=== PATIENT | male | born 1990 | race Caucasian/White ===

== ENCOUNTER 2019-08-30 19:36 | Emergency (ER) | payer OTHER, BC ==
[~2019-08-30] VITALS: Ht 172.7 cm; Wt 100.0 kg
[2019-08-30] MEDS ORDERED: pantoprazole 40 MG vial IV ONE (20:00)
[2019-08-30] MEDS ORDERED: morphine 4 MG/ML inj SYRINge IV ONE (20:25)
[2019-08-30 20:32] LABS: PARTIAL THROMBOPLASTIN TIME 25 SECONDS (22-32)
[2019-08-30 20:33] LABS: ALANINE AMINOTRANSFERASE 41 U/L (12-78); ALBUMIN 4.3 G/DL (3.4-5.0); ALKALINE PHOSPHATASE 80 IU/L (46-116); ANION GAP 9 (8-16); ASPARTATE AMINO TRANSFERASE 26 U/L (10-37); BILIRUBIN,TOTAL 0.5 MG/DL (0.1-1.0); BLOOD UREA NITROGEN 13 MG/DL (7-18); BUN/CREATININE RATIO 10.5 (5.4-32.0); CALCIUM 9.1 MG/DL (8.5-10.1); CHLORIDE 103 MMOL/L (99-107); CREATININE 1.24 MG/DL (0.60-1.10); GLUCOSE 89 MG/DL (70-104); LIPASE 94 U/L (73-393); POTASSIUM 3.7 MMOL/L (3.5-5.1); SODIUM 140 MMOL/L (135-145); TOTAL CARBON DIOXIDE 27.9 MMOL/L (24-32); TOTAL PROTEIN 8.7 G/DL (6.4-8.2); eGFR 68 ML/MIN
[2019-08-30 20:35] LABS: BASOPHILS # (AUTO) 0.1 X10'3 (0-0.2); BASOPHILS % (AUTO) 0.5 % (0-1); EOSINOPHILS # (AUTO) 0.2 X10'3 (0-0.9); EOSINOPHILS % (AUTO) 1.9 % (0-6); HEMATOCRIT 43.4 % (42.0-52.0); HEMOGLOBIN 15.5 g/dl (14.0-17.9); LYMPHOCYTES # (AUTO) 2.8 X10'3 (1.1-4.8); LYMPHOCYTES % (AUTO) 26.3 % (21-51); MEAN CORPUSCULAR HGB CONC 35.8 g/dL (33.0-36.5); MEAN CORPUSCULAR VOLUME 92.4 FL (78-98); MEAN PLATELET VOLUME 8.5 FL (7.4-10.4); MONOCYTES # (AUTO) 0.6 X10'3 (0-0.9); MONOCYTES % (AUTO) 5.2 % (2-12); NEUTROPHILS % (AUTO) 66.1 % (42-75); PLATELET COUNT 282 X10'3 (140-440); RED BLOOD COUNT 4.69 X10'6 (4.70-6.10); RED CELL DISTRIBUTION WIDTH 13.3 % (11.5-14.5); WHITE BLOOD COUNT 10.6 X10'3 (4.5-11.0)
[2019-08-30] MEDS ORDERED: iohexol 300mg/ml 100ml inj. ONE (20:45)
[2019-08-30] MEDS ORDERED: diphenhydrAMINE 50 mg/ml inj IV ONE (22:00)
[2019-08-30] MEDS ORDERED: normal saline 1000ML IV soln IVB ONE (22:00)
[2019-08-30] MEDS ORDERED: proCHLORperazine 10 MG/2 ml inj IV ONE (22:00)
[2019-08-30] MEDS ORDERED: famotidine/PF 10 mg/ml inj IV ONE (22:00)
[2019-08-30 22:39] LABS: OCCULT BLOOD STOOL NEGATIVE (Neg)
[2019-08-30] MEDS ORDERED: ONDA4TAB6 PO (22:41)
[2019-08-30] MEDS ORDERED: FAMO20TA8 PO (22:41)
[2019-08-30 23:19] LABS: CLARITY,URINE CLEAR (Clear); COLOR,URINE YELLOW (Yellow); GLUCOSE, URINE NEGATIVE (Neg); KETONES,URINE NEGATIVE (Neg); LEUKOCYTE ESTERASE ,URINE NEGATIVE (Neg); NITRITES, URINE NEGATIVE (Neg); OCCULT BLOOD,URINE NEGATIVE (Neg); PROTEIN,URINE NEGATIVE (Neg); UROBILINOGEN,URINE 0.2 E.U/dL (0.2-1.0)
[2019-08-30 23:20] LABS: UA COLLECTION TYPE URINAL
[2019-08-30 23:35] VITALS: BP 105/46
== END 2019-08-30 23:39 | disposition home or self-care (01) ==
LOC: ER 19:37
DX: K92.0 Hematemesis (principal); R10.32 Left lower quadrant pain; F12.90 Cannabis use, unspecified, uncomplicated; Z90.49 Acquired absence of other specified parts of digestive tract
CPT/HCPCS: 36415; 74177; 80053; 81003; 82272; 83690; 85025; 85610; 85730; 96361; 96374; 96375; 99284; C9113; J0780; J1200; J2270; J3490; J7030; Q9967

== ENCOUNTER 2020-05-15 14:45 | Emergency (ER) | payer OTHER, BC ==
[~2020-05-15] VITALS: Ht 175.3 cm; Wt 91.0 kg
[~2020-05-15 14:45] MED LIST: FAMO20TA8 PO; ONDA4TAB6 PO
[2020-05-15] MEDS ORDERED: HYDROcodone/acetaminophen 10/325mg tab PO ONE (15:20)
[2020-05-15] MEDS ORDERED: ondansetron 4mg rapidly disintigrating tab PO ONE (15:20)
[2020-05-15 16:20] VITALS: BP 112/62
== END 2020-05-15 17:11 | disposition home or self-care (01) ==
LOC: ER 14:45
DX: N50.812 Left testicular pain (principal); N43.3 Hydrocele, unspecified; N50.3 Cyst of epididymis; N45.1 Epididymitis; F12.90 Cannabis use, unspecified, uncomplicated; Z72.89 Other problems related to lifestyle; Z90.49 Acquired absence of other specified parts of digestive tract; Z79.899 Other long term (current) drug therapy
CPT/HCPCS: 76870; 93976; 99284